=== PATIENT | male | born 1985 | race African-American/Black ===

== ENCOUNTER 2024-03-12 18:35 | Emergency (ER) | payer OTHER, SELFPAY ==
[2024-03-12 18:45] VITALS: BP 155/88; PULSE 95; RESP 16; TEMP 37.1; O2SAT 100
--- NOTE | 2024-03-12 19:20 | ED.SKABFB ---
HPI - Skin/Abscess/Foreign Bdy General Chief complaint: Skin/Abscess/Foreign Body Stated complaint: Insect Bite Time Seen by Provider: 03/12/24 19:20 Source: patient and RN notes reviewed Mode of arrival: ambulatory Limitations: dementia History of Present Illness HPI narrative: 39-year-old male presents with concern for possible spider bite on the right forearm. Reports this morning he noticed a black spot surrounded by some redness. Reports the redness has gotten a little larger throughout the day. He denies fever, body aches, chills, sweats, nausea, vomiting, headache complaint: insect bite/sting and other (Redness) Related Data Allergies Allergy/AdvReac Type Severity Reaction Status Date / Time No Known Allergies Allergy Verified 03/12/24 19:02 Review of Systems Review of Systems: CONSTITUTIONAL: Denies malaise, chills, sweats, or fever. EYES: Denies redness, or discharge. ENT: Denies rhinorrhea, congestion, swollen lips, swollen tongue CARDIOVASCULAR: Denies chest pain, palpitations, or edema. RESPIRATORY: Denies cough or dyspnea. GASTROINTESTINAL: Denies abdominal pain, nausea, vomiting SKIN: Reports redness, swelling and tenderness to the right forearm. Denies purulent drainage, vesicles, bullae, numbness, pain beyond proportion MUSCULOSKELETAL: Denies joint pain or myalgia. NEUROLOGIC: Denies headache. All systems reviewed & are unremarkable except as noted in HPI and below PMFSH Comments At time of signature, agree with nursing past medical, surgical, social and family history. There is no relevant family history pertinent to the presenting complaint Exam Narrative: GENERAL: Well-appearing, well-nourished, and in no acute distress. HEAD: Normocephalic, atraumatic. EYES: PERRLA, conjunctivae clear ENT: Mucous membranes moist. NECK: Supple. No lymphadenopathy CHEST: Clear to auscultation. No respiratory distress. HEART: Regular rate and rhythm. SKIN: Warm, dry. Approximately 0.5 cm dark circular area of apparent bite site surrounded by approximately 7 cm of Erythema, induration, tenderness, warmth with sharp margins noted the right forearm, there is streaking approximately 15 cm up the arm. No vesicles, bullae, necrosis, ecchymosis, crepitus noted. NEURO: Alert and oriented x3. PSYCH: Normal mood and affect Course Course Emergency Course: Patient is aware of diagnosis, understands and agrees to treatment plan. Anticipatory guidance given. Patient agrees to follow-up as directed and is aware of reasons to seek care at the emergency department. Portions of this record may have been created with voice recognition software Level of Care: [facility] Visit Vital Signs Vital signs: Vital Signs Temperature 98.7 F 03/12/24 18:45 Pulse Rate 95 03/12/24 18:45 Respiratory Rate 16 03/12/24 18:45 Blood Pressure 155/88 H 03/12/24 18:45 Pulse Oximetry 100 03/12/24 18:45 Oxygen Delivery Room Air 03/12/24 18:45 Temperature 98.7 F 03/12/24 18:45 Pulse Rate 95 03/12/24 18:45 Respiratory Rate 16 03/12/24 18:45 Blood Pressure 155/88 H 03/12/24 18:45 Pulse Oximetry 100 03/12/24 18:45 Oxygen Delivery Room Air 03/12/24 18:45 Reviewed. MDM - Skin/Abscess/Foreign Bdy MDM Narrative Medical decision making narrative: I evaluated this in the [facility]. History is obtained from patient who is an independent historian and physical exam was performed.? Available medical records were reviewed. ? Exam findings and relevant testing show no acute concerns or changes; patient is non-toxic appearing and is in no distress. No risk factors or findings concerning for epidural abscess, diskitis, vertebral osteomyelitis, cord compression, cauda equina, vertebral fracture or bone malignancy, AAA, or pyelonephritis. Patient instructed to consider further imaging and workup through their primary care physician as an outpatient if symptoms persist. Does not appear at this time to be erythema multiforme, bullous, SJS, TEN; no evidence at this time to suggest RMSF, NSTI, endocarditis or Lyme disease; patient looks well, nontoxic and is tolerating oral intake; no neurologic signs or symptoms; no headache, photophobia or neck pain; afebrile.? Patient does not have history of of penetrating trauma, laceration, blunt trauma, recent surgery, immunosuppression, malignancy, obesity, alcoholism, corticosteroid use.? Discussed the importance of follow-up, patient agrees; question, cellulitis versus necrotizing soft tissue infection versus abscess.?? Patient is appropriate for outpatient treatment and follow-up. Critical Care Time Critical Care Time Critical Care Time: No Discharge Plan Discharge Clinical Impression: Infected insect bite Patient Disposition: Home, Self-Care Condition: Stable Instructions: Antibiotic Form, Brown Recluse Spider Bite (ED) Additional Instructions: Please follow up with your Primary Care Doctor within 48-72 hours - call for an appointment. Rest and elevate affected area; apply ice 3-4 times daily for 10-15 minutes. Take Motrin 600mg every 8 hours with food for pain. Please take Antibiotics as directed. If you experience any worsening redness, swelling, streaking (red lines), fever or chills please go to the ER Prescriptions: New amoxicillin-pot clavulanate 875-125 mg tablet 1 tablet PO Q12H 10 Days Qty: 20 0RF Follow-up/Referrals: PHYSICIAN,TELECOMMUNICATIONS OPERATOR [Primary Care Provider] - Time of Disposition: 19:29
== END 2024-03-12 19:30 | disposition home or self-care (01) ==
PROVIDERS: Emergency Provider Nurse Practitioner
DX: S50.861A Insect bite (nonvenomous) of right forearm, initial encounter (principal); W57.XXXA Bitten or stung by nonvenomous insect and other nonvenomous arthropods, initial encounter
CPT/HCPCS: 99203; G0463

== ENCOUNTER 2024-03-20 14:42 | Emergency (ER) | payer OTHER, SELFPAY ==
[2024-03-20 14:57] VITALS: BP 154/84; PULSE 90; RESP 18; TEMP 36.6; O2SAT 100
--- NOTE | 2024-03-20 15:22 | ED.SKABFB ---
HPI - Skin/Abscess/Foreign Bdy General Chief complaint: Skin/Abscess/Foreign Body Stated complaint: spider bite Time Seen by Provider: 03/20/24 14:51 History of Present Illness HPI narrative: Patient presents for evaluation to wound to his right forearm. Patient was here and evaluated 8 days ago for insect bite to his right forearm. Patient states he took the medication and wound became worse and went to the emergency room was given IV antibiotics and discharged on Bactrim. Patient presents today asking Tylenol and or ibuprofen for pain and discomfort. Patient states he is unable to purchase any gymo-tju-[id number] pain medications at this time. Patient stains wound is much improving no drainage and no streaking at this time. Patient denies any fever. Related Data Home Medications Medication Instructions Recorded Confirmed sulfamethoxazole 800 1 tablet PO Q12H 03/20/24 03/20/24 mg-trimethoprim 160 mg tablet Allergies Allergy/AdvReac Type Severity Reaction Status Date / Time No Known Allergies Allergy Verified 03/20/24 14:59 Review of Systems Review of Systems: CONSTITUTIONAL: Denies fever, chills, or sweats. EYES: Denies visual changes, redness, or discharge. ENT: Denies rhinorrhea, congestion, sore throat, or otalgia. CARDIOVASCULAR: Denies chest pain, palpitations, or edema. RESPIRATORY: Denies cough or dyspnea. GASTROINTESTINAL: Denies abdominal pain, nausea, vomiting, or diarrhea. GENITOURINARY: Denies dysuria or hematuria. SKIN: Denies rash or itching. MUSCULOSKELETAL: Denies back pain, joint pain, or myalgia. NEUROLOGIC: Denies headache, numbness, or weakness. PSYCHIATRIC: Denies anxiety or depression. PMFSH Comments At time of signature, agree with nursing past medical, surgical, social and family history. There is no relevant family history pertinent to the presenting complaint Exam Const: Other: GENERAL: Well-appearing, well-nourished, and in no acute distress. HEAD: Normocephalic, atraumatic. EYES: PERRLA and EOMI. ENT: Nares clear, no rhinorrhea or epistaxis. Mucous membranes moist. NECK: Supple. CHEST: Clear to auscultation. No respiratory distress. HEART: Regular rate and rhythm. No murmur heard. Normal peripheral pulses. ABDOMEN: Soft, nontender, nondistended, normal active bowel sounds. EXTREMITIES: Normal range of motion. No edema. SKIN: Warm, dry, no rash. Insect bite to right forearm with 8 cm area of erythema 10 cm in with no streaking at present patient has photographs from past and shows much improvement to area. Patient here today for pain control. NEURO: No focal deficits. Alert and oriented x3. Angelo Coma Scale Eye Opening: Spontaneous 4 Angelo Coma Scale Motor: Obeys Commands 6 Angelo Coma Scale Verbal: Oriented 5 Angelo Coma Scale Total 15 Course Course Level of Care: Express Care Visit Vital Signs Vital signs: Vital Signs Temperature 36.6 C 03/20/24 14:57 Pulse Rate 90 03/20/24 14:57 Respiratory Rate 18 03/20/24 14:57 Blood Pressure 154/84 H 03/20/24 14:57 Pulse Oximetry 100 03/20/24 14:57 Oxygen Delivery Room Air 03/20/24 14:57 Temperature 36.6 C 03/20/24 14:57 Pulse Rate 90 03/20/24 14:57 Respiratory Rate 18 03/20/24 14:57 Blood Pressure 154/84 H 03/20/24 14:57 Pulse Oximetry 100 03/20/24 14:57 Oxygen Delivery Room Air 03/20/24 14:57 Please NIKOLAS schedule a followup visit with your personal physician for further evaluation and treatment. Including recheck and discussion of your blood pressure. If your symptoms persist, change or worsen significantly before you can contact your personal physician then please, without delay, go to the emergency department for further evaluation Discharge Plan Discharge Clinical Impression: Cellulitis, Insect bites, Encounter for wound re-check Patient Disposition: Home, Self-Care Condition: Stable Instructions: Antibiotic Form Additional Instructions: Continue Bactrim as ordered Start cephalexin today intake as ordered until gone Take Tylenol alternating with ibuprofen as needed for pain and discomfort Follow-up with PCP in 2-3 days for re-evaluation If any new or worsening symptoms please go to ER immediately further evaluation treatment Prescriptions: New cephalexin 500 mg capsule 500 mg PO Q8H 7 Days Qty: 21 0RF acetaminophen [Acetaminophen Extra Strength] 500 mg tablet 500 mg PO QID PRN (Reason: pain) 5 Days Qty: 14 0RF ibuprofen 600 mg tablet 600 mg PO TID PRN (Reason: pain) 7 Days Qty: 14 0RF No Action sulfamethoxazole-trimethoprim 800-160 mg tablet 1 tablet PO Q12H Rx Instructions: STARTED ON 03/17/24 Follow-up/Referrals: PHYSICIAN,MENTAL RETARDATION NURSE [Primary Care Provider] -
== END 2024-03-20 15:30 | disposition home or self-care (01) ==
PROVIDERS: Emergency Provider Nurse Practitioner Family
DX: L03.113 Cellulitis of right upper limb (principal); S50.861D Insect bite (nonvenomous) of right forearm, subsequent encounter; W57.XXXD Bitten or stung by nonvenomous insect and other nonvenomous arthropods, subsequent encounter
CPT/HCPCS: 99213; G0463